=== PATIENT | female | born 2005 | race Caucasian/White ===

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

== ENCOUNTER → 2023-02-26 | Outpatient (CLI) | payer OTHER ==
--- NOTE | 2023-02-26 12:02 | US ---
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 Probabl y reactive/post inflammatory. These can be followed clinically. Rescan if further enlargement is note d.
== END | disposition home or self-care (01) ==
LOC: RADUSWWP 06:50
PROVIDERS: ATTEND Internal Medicine
DX: R59.9 Enlarged lymph nodes, unspecified (principal)
CPT/HCPCS: 76536

== ENCOUNTER → 2024-01-23 | Outpatient (CLI) | payer OTHER ==
--- NOTE | 2024-01-26 13:07 | CT ---
EXAMINATION TYPE: CT brain wo con CT DLP: 1098.4 mGycm, Automated exposure control for dose reduction was used. DATE OF EXAM: 01/23/2024 12:32 PM COMPARISON: . CLINICAL INDICATION:Female, 18 years old with history of S06.0XAA CONCUSSION WITH LOC STATUS UNKNOWN, INITIALheadaches, dizzy, nausea TECHNIQUE: Brain: Axial CT images of the brain were obtained with coronal and sagittal reformats created and rev iewed. Contrast used: None. Oral contrast used: None. FINDINGS: Brain: Extra-axial spaces: No abnormal extra-axial fluid collections. Ventricular system: Within normal limits Cerebral parenchyma: No acute intraparenchymal hemorrhage or mass effect. The garzon-white junction is well differentiated. Cerebellum: Unremarkable. Mass effect: No evidence of midline shift. Intracranial vasculature: unremarkable Soft tissues: Normal. Calvarium/osseous structures: No depressed skull fracture. Paranasal sinuses and mastoid air cells: Mild scattered paranasal sinus disease. Visualized orbits: Orbital contents are intact. IMPRESSION: No acute intracranial process.
== END | disposition home or self-care (01) ==
LOC: RADCTMAIN 12:10
PROVIDERS: ATTEND Internal Medicine
DX: S06.0XAA Concussion with loss of consciousness status unknown, initial encounter (principal)
CPT/HCPCS: 70450